=== PATIENT | male | born 1990 | race Caucasian/White ===

== ENCOUNTER 2016-04-13 23:53 | Emergency (ER) | payer SELFPAY ==
[2016-04-14 00:03] VITALS: O2SAT 97
[2016-04-14 00:22] LABS: MUCUS 4+ /lpf (NONE-1+); RBC,URINE 50-182 /hpf (0-3)
[2016-04-14 00:26] LABS: COLOR YELLOW; LEUKOCYTE ESTERASE,URINE NEGATIVE (NEGATIVE); NITRITE,URINE NEGATIVE (NEGATIVE)
--- NOTE | 2016-04-14 01:03 | EDPHY ---
H & P Stated Complaint: THINKS HAS KIDNEY STONE, LEFT FLANK PAIN ALL DAY TODAY HPI/ROS: HPI CHIEF COMPLAINT: Left flank pain HISTORY OF PRESENT ILLNESS: This patient very pleasant 25-year-old male denies any significant medical history only surgical history is for ACL repair right knee, and tonsillectomy, presents to the emergency room with left flank pain describes as sharp stabbing severe 10/10 initially does radiate to his left lower quadrant no testicular pain does tell me that when he tries to urinate the pain gets worse. He states it has been going on for the past 3-4 hours. He did have 1 episode of nausea with vomiting. He denies fever, chest pain or shortness of breath. His pain is located right now in the left CVA region. He does have a remote history of small kidney stones. Past Medical History: Kidney stones Past Surgical History: Tonsillectomy, ACL repair Social History: Denies daily use of drugs alcohol tobacco products, lives locally in [place], self-employed Family History: Noncontributory ROS REVIEW OF SYSTEMS: A comprehensive 10 point review of systems is otherwise negative aside from elements mentioned in the history of present illness. Exam Constitutional triage nursing summary reviewed, vital signs reviewed, awake/ alert. Eyes normal conjunctivae and sclera, EOMI, PERRLA. HENT normal inspection, atraumatic, moist mucus membranes, no epistaxis, neck supple/ no meningismus, no raccoon eyes. Respiratory clear to auscultation bilaterally, normal breath sounds, no respiratory distress, no wheezing. Cardiovascular rate normal, regular rhythm, no murmur, no edema, distal pulses normal. Gastrointestinal no tenderness palpation on abdominal exam, soft, non-tender , no rebound, no guarding, normal bowel sounds, no distension, no pulsatile mass. Genitourinary left CVA tenderness Musculoskeletal no midline vertebral tenderness, full range of motion, no calf swelling, no tenderness of extremities, no meningismus, good pulses, neurovascularly intact. Skin pink, warm, & dry, no rash, skin atraumatic. Neurologic awake, alert and oriented x 3, AAOx3, moves all 4 extremities equally, motor intact, sensory intact, CN II-XII intact, normal cerebellar, normal vision, normal speech. Psychiatric normal mood/affect. Heme/Lymph/Immune no lymphadenopathy. Differential Diagnosis: Includes but is not limited to in a particular order, kidney stone, hydroureter hydronephrosis, UTI, pyelonephritis, kidney mass Medical Decision Making: this patient had an IV established receive IV fluids IV fentanyl 50 mcg IV for pain control, IV Phenergan for nausea, will check urinalysis will check blood work patient had a CT scan abdomen pelvis without IV contrast for kidney stone. Re-evaluation: CT scan of the abdomen pelvis without IV contrast . The results of the study are this shows a 4.5 mm left UVJ stone moderate amount hydronephrosis The study was read by Dr. Ness I viewed the images myself on the PACS system. Time of re-evaluation: The patient is resting comfortably here, 0151: Re- examination at this time this patient is resting comfortably no acute distress feels well. No vomiting his pain is well controlled he tells me his pain is currently 1/10. He just received 30 mg IV Toradol. He will be sent home with Phenergan, [place], Flomax. He does understand strict return precautions includes worsening pain, fever, vomiting also understands he needs to follow up with Urology. Source: Patient - Personal History Current Tetanus/Diphtheria Vaccine: Yes - Medical/Surgical History Hx Asthma: No Hx Chronic Respiratory Disease: No Hx Diabetes: No Hx Cardiac Disease: No Hx Renal Disease: No Hx Cirrhosis: No Hx Alcoholism: No Hx HIV/AIDS: No Hx Splenectomy or Spleen Trauma: No Other PMH: KIDNEY STONES, ANXIETY - Social History Smoking Status: Never smoked Constitutional: Initial Vital Signs Heart Rate 78 04/13/16 23:58 Respiratory Rate 22 H 04/13/16 23:58 Blood Pressure 134/100 H 04/13/16 23:58 O2 Sat (%) 97 04/13/16 23:58 O2 Delivery Mode Room Air Allergies/Adverse Reactions: morphine Allergy (Verified 04/13/16 23:58) Home Medications: Medication Instructions Recorded Lexapro 04/13/16 Hydrocodone/APAP 5/325 [[place] 1 - 2 tab PO Q4H PRN #10 tab 04/14/16 5/325] Promethazine HCl [Phenergan 25mg 25 mg PO BID #7 tab 04/14/16 (*)] Tamsulosin HCl [Flomax] 0.4 mg PO DAILY #10 cap 04/14/16 Medical Decision Making - Data Points Laboratory Results: Laboratory Results 04/14/16 00:18 04/14/16 00:18 04/14/16 04/14/16 00:18 00:00 WBC 17.23 H 10^3/uL (3.80-9.50) RBC 5.97 10^6/uL (4.40-6.38) Hgb 17.0 g/dL (13.7-17.5) Hct 49.5 % (40.0-51.0) MCV 82.9 fL (81.5-99.8) MCH 28.5 pg (27.9-34.1) MCHC 34.3 g/dL (32.4-36.7) RDW 12.3 % (11.5-15.2) Plt Count 295 10^3/uL (150-400) MPV 9.4 fL (8.7-11.7) Neut % (Auto) 82.9 H % (39.3-74.2) Lymph % (Auto) 11.4 L % (15.0-45.0) [place] % (Auto) 4.3 L % (4.5-13.0) Eos % (Auto) 0.6 % (0.6-7.6) Baso % (Auto) 0.3 % (0.3-1.7) Nucleat RBC Rel Count 0.0 % (0.0-0.2) Absolute Neuts (auto) 14.29 H 10^3/uL (1.70-6.50) Absolute Lymphs (auto) 1.97 10^3/uL (1.00-3.00) Absolute Monos (auto) 0.74 10^3/uL (0.30-0.80) Absolute Eos (auto) 0.10 10^3/uL (0.03-0.40) Absolute Basos (auto) 0.05 10^3/uL (0.02-0.10) Absolute Nucleated RBC 0.00 10^3/uL (0-0.01) Immature Gran % 0.5 % (0.0-1.1) Immature Gran # 0.08 10^3/uL (0.00-0.10) Sodium 145 H mEq/L (134-144) Potassium 3.7 mEq/L (3.5-5.2) Chloride 103 mEq/L (97-110) Carbon Dioxide 27 mEq/l (22-31) Anion Gap 15 mEq/L (8-16) BUN 13 mg/dL (7-23) Creatinine 1.1 mg/dL (0.7-1.3) Estimated GFR > 60 Glucose 103 H mg/dL (70-100) Calcium 9.3 mg/dL (8.5-10.4) Total Bilirubin 0.5 mg/dL (0.1-1.4) Conjugated Bilirubin 0.3 mg/dL (0.0-0.5) Unconjugated Bilirubin 0.2 mg/dL (0.0-1.1) AST 40 IU/L (17-59) ALT 64 IU/L (21-72) Alkaline Phosphatase 102 IU/L (38-126) Total Protein 7.8 g/dL (6.3-8.2) Albumin 4.5 g/dL (3.5-5.0) Lipase 45.0 IU/L (23-300) Urine Color YELLOW Urine Appearance CLEAR Urine pH 5.0 (5.0-7.5) Ur Specific [place] 1.025 (1.002-1.030) Urine Protein 1+ H (NEGATIVE) Urine Ketones TRACE H (NEGATIVE) Urine Blood 3+ H (NEGATIVE) Urine Nitrate NEGATIVE (NEGATIVE) Urine Bilirubin NEGATIVE (NEGATIVE) Urine Urobilinogen NEGATIVE EU (0.2-1.0) Ur Leukocyte Esterase NEGATIVE (NEGATIVE) Urine RBC 50-182 H /hpf (0-3) Urine WBC 3-5 H /hpf (0-3) Ur Epithelial Cells Not Reported Calcium Oxalate Crystal PRESENT /hpf (NONE-1+) Urine Mucus 4+ H /lpf (NONE-1+) Ur Culture Indicated? NOT INDICATED (NI) Urine Glucose NEGATIVE (NEGATIVE) Medications Given: Discontinued Medications Fentanyl (Sublimaze) 50 mcg IVP EDNOW ONE Stop: 04/14/16 01:13 Last Admin: 04/14/16 01:27 Dose: 50 mcg Sodium Chloride (Ns) 1,000 mls @ 0 mls/hr IV ONCE ONE PRN Reason: Wide Open Stop: 04/14/16 01:13 Last Admin: 04/14/16 01:28 Dose: 1,000 mls Departure - Departure Disposition: Home, Routine, Self-Care Clinical Impression: Kidney stone on left side Condition: Good Instructions: Kidney Stones (ED), Flank Pain (ED), Renal Colic (ED) Additional Instructions: 1. Drink lots of fluids stay well-hydrated 2. return to the emergency room if you have any significant or worsening pain. 3. please follow up with Urology. 4.Your CT scan shows you have a 4.5 mm left-sided UVJ kidney stone. This is almost in her bladder. You should pass in the next 72 hours. Referrals: NONE *PRIMARY CARE P,. [Primary Care Provider] - As per Instructions Gus Hubbard MD [Medical Doctor] - As per Instructions Prescriptions: Tamsulosin HCl [Flomax] 0.4 mg PO DAILY #10 cap Hydrocodone/APAP 5/325 [[place] 5/325] 1 - 2 tab PO Q4H PRN #10 tab PRN Reason: Pain, Moderate Promethazine HCl [Phenergan 25mg (*)] 25 mg PO BID #7 tab
[2016-04-14] MEDS ORDERED: NS 1,000 ML IV ONE (01:12)
[2016-04-14] MEDS ORDERED: fentaNYL 100 MCG/2 ML INJ IVP ONE (01:12)
[2016-04-14] MEDS ORDERED: PROMETHAZINE HCL 25 MG/ML VIAL IVP PRN (01:13)
[2016-04-14 01:17] LABS: % IMMATURE GRANULYOCYTES 0.5 % (0.0-1.1); ABSOLUTE IMMATURE GRANULOCYTES 0.08 10^3/uL (0.00-0.10); ADD DIFF? NO; ADD MORPH? NO; ADD SCAN? NO; ATYPICAL LYMPHOCYTE FLAG 0 (0-99); FRAGMENT RBC FLAG 0 (0-99); HEMATOCRIT 49.5 % (40.0-51.0); LEFT SHIFT FLG 0 (0-99); LIPEMIA HEMOLYSIS FLAG 90 (0-99); MEAN CELL HEMOGLOBIN 28.5 pg (27.9-34.1); MEAN CELL HEMOGLOBIN CONCENTR. 34.3 g/dL (32.4-36.7); MEAN CELL VOLUME 82.9 fL (81.5-99.8); MEAN PLATELET VOLUME 9.4 fL (8.7-11.7); PLATELET CLUMPS FLAG 10 (0-99); PLATELET COUNT 295 10^3/uL (150-400); RED BLOOD CELL COUNT 5.97 10^6/uL (4.40-6.38); RED CELL DISTRIBUTION WIDTH 12.3 % (11.5-15.2)
[2016-04-14 01:30] LABS: ALANINE AMINOTRANSFERASE 64 IU/L (21-72); ALBUMIN 4.5 g/dL (3.5-5.0); ALKALINE PHOSPHATASE 102 IU/L (38-126); ANION GAP 15 mEq/L (8-16); ASPARTATE AMINOTRANSFERASE 40 IU/L (17-59); BILIRUBIN,TOTAL 0.5 mg/dL (0.1-1.4); BILIRUBIN-CONJUGATED 0.3 mg/dL (0.0-0.5); BILIRUBIN-UNCONJUGATED 0.2 mg/dL (0.0-1.1); CALCIUM 9.3 mg/dL (8.5-10.4); CARBON DIOXIDE 27 mEq/l (22-31); CHLORIDE 103 mEq/L (97-110); CREATININE 1.1 mg/dL (0.7-1.3); GLOMERULAR FILTRATION RATE > 60; GLUCOSE 103 mg/dL (70-100); POTASSIUM 3.7 mEq/L (3.5-5.2); SODIUM 145 mEq/L (134-144); TOTAL PROTEIN 7.8 g/dL (6.3-8.2)
[2016-04-14] MEDS ORDERED: KETOROLAC 30 MG/1 ML SDV IVP ONE (01:36)
[2016-04-14 02:05] VITALS: BP 138/84; PULSE 86; RESP 16; TEMP 98.4
--- NOTE | 2016-04-14 09:04 | CT ---
CT Scan of the Urinary Tract (Abdomen and Pelvis Without Contrast) at 0123 hours Clinical Indications: Left flank pain. Hematuria. Technique: Multidetector helical CT imaging was performed from the kidneys to the urinary bladder wi thout contrast. Dose reduction techniques were utilized. Findings: Abdomen: The lung bases are clear. No focal liver lesion. Gallbladder is unremarkable. Spleen is unre markable. Both adrenal glands are normal in size and appearance. Couple small calcifications are seen in the left kidney in the region of the pyramid which are nonobstructive largest measuring 3 mm in t he inferior pole. There is mild left hydronephrosis. No evidence for right nephrolithiasis. No signif icant abdominal lymphadenopathy. Pelvis: There is a 4.3 mm calculus in the bladder side of the ureterovesical junction on the left. Th ere is mild dilatation of the left ureter. No significant free fluid. No evidence for free intraperit luna air. Diverticulosis is seen in the sigmoid colon without evidence for diverticulitis. There is mild constipation in the right side of the colon. Appendix is normal in size and appearance. IMPRESSION: 1. There is a calculus just into the bladder at the left ureterovesical junction indicating a recentl y passed stone with mild left hydronephrosis and hydroureter. There is also nonobstructive left nephr olithiasis. 2. Mild constipation. Mild diverticulosis without evidence for diverticulitis. Results discussed with Dr. Kem Fernandes on April 14, 2016 at 0137 hours. Attention: This CT examination is specifically designed to evaluate patients who are clinically susp ected of having acute obstructive uropathy. This examination does not use radiographic contrast, and as such, provides only a limited evaluation of the abdomen, pelvis and retroperitoneum. If there i s further clinical suspicion for pathological conditions other than obstructive uropathy, a complete CT evaluation of the abdomen and pelvis utilizing intravenous, oral, and rectal contrast should be co nsidered.
== END 2016-04-14 02:27 | disposition home or self-care (01) ==
DX: N20.0 Calculus of kidney (principal)
CPT/HCPCS: 96374; J1885; J2550; J3010